=== PATIENT | male | born 1970 | race Caucasian/White ===

== ENCOUNTER 2018-02-01 19:50 | Emergency (ER) | END 2018-02-02 00:30 | disposition home or self-care (01) ==

== ENCOUNTER 2018-06-14 22:48 | Observation (INO) | payer MEDICAID ==
[~2018-06-14] VITALS: Ht 175.3 cm; Wt 157.0 kg
[~2018-06-14 22:48] MED LIST: CEPH-443 PO; HYDR-4011 PO; IBUP800T48 PO; SULF1TAB31 PO
[2018-06-15] VITALS (12 sets, daily range): BP systolic 123–169; BP diastolic 61–83; PULSE 70–81; RESP 20
[2018-06-15] MEDS ORDERED: hydrALAzine 20 MG INJ IV ONE (01:00)
[2018-06-15] MEDS ORDERED: HYDROCODONE/APAP (10/325) TAB PO ONE (03:00)
--- NOTE | 2018-06-15 03:32 | ERD ---
ER Documentation Chief Complaint Chief Complaint CP, PALPITATIONS X'S 1 WEEK HPI This is a 47-year-old male complains of chest pain and palpitations for the past week. Pain is mild to moderate intensity no exacerbating alleviating factors. No radiations. No associated shortness of breath. Does complain of palpitations. No other current problems. Patient does have documented history of high blood pressure, however has been noncompliant with medications for over one year ROS All systems reviewed and are negative except as per history of present illness. Medications Home Meds Discontinued Scripts Ibuprofen* (Motrin*) 800 Mg Tab, 800 MG PO Q6H PRN for PAIN AND OR ELEVATED TEMP, #30 TAB Prov:PASILABAN,KLAR F 02/02/18 Hydrocodone/Acetaminophen ([place] 5-325 Tablet) 1 Each Tablet, 1 TAB PO Q6H PRN for PAIN, #7 TAB Prov:PASILABAN,KLAR F 02/02/18 Sulfamethoxazole/Trimethoprim* (Bactrim Ds* Tablet) 1 Each Tablet, 1 TAB PO BID, #14 TAB Prov:PASILABAN,KLAR F 02/02/18 Cephalexin* (Keflex*) 500 Mg Capsule, 500 MG PO QID for 5 Days, CAP Prov:PASILABAN,KLAR F 02/02/18 Allergies Allergies: Coded Allergies: No Known Allergy (Unverified , 06/15/18) PMhx/Soc History of Surgery: No Anesthesia Reaction: No Hx Neurological Disorder: No Hx Respiratory Disorders: No Hx Cardiac Disorders: Yes (htn) Hx Psychiatric Problems: No Hx Miscellaneous Medical Probl: Yes (diabetes) Hx Alcohol Use: No Hx Substance Use: No Hx Tobacco Use: No Smoking Status: Never smoker Physical Exam Vitals Vital Signs Date Temp Pulse Resp B/P (MAP) Pulse Ox O2 O2 Flow FiO2 Time Delivery Rate 06/15/18 97.6 84 24 154/83 95 Room Air 02:00 (106) 06/15/18 80 16 178/73 97 Room Air 00:21 (108) 06/14/18 98.5 86 18 261/121 97 23:11 (167) Physical Exam Const: No acute distress Head: Atraumatic Eyes: Normal Conjunctiva ENT: Normal External Ears, Nose and Mouth. Neck: Full range of motion. No meningismus. Resp: Clear to auscultation bilaterally Cardio: Regular rate and rhythm, no murmurs Abd: Soft, non tender, non distended. Normal bowel sounds Skin: No petechiae or rashes Back: No midline or flank tenderness Ext: No cyanosis, or edema Neur: Awake and alert Psych: Normal Mood and Affect Result Diagram: 06/15/185 06/15/1834 Results 24 hrs Laboratory Tests Test 06/15/18 00:35 White Blood Count 7.6 10^3/ul Red Blood Count 5.09 10^6/ul Hemoglobin 14.1 g/dl Hematocrit 42.1 % Mean Corpuscular Volume 82.7 fl Mean Corpuscular Hemoglobin 27.7 pg Mean Corpuscular Hemoglobin Concent 33.5 g/dl Red Cell Distribution Width 12.4 % Platelet Count 191 10^3/UL Mean Platelet Volume 10.1 fl Immature Granulocytes % 0.300 % Neutrophils % 42.5 % Lymphocytes % 44.6 % Monocytes % 9.4 % Eosinophils % 2.5 % Basophils % 0.7 % Nucleated Red Blood Cells % 0.0 /100WBC Immature Granulocytes # 0.020 10^3/ul Neutrophils # 3.2 10^3/ul Lymphocytes # 3.4 10^3/ul Monocytes # 0.7 10^3/ul Eosinophils # 0.2 10^3/ul Basophils # 0.1 10^3/ul Nucleated Red Blood Cells # 0.0 10^3/ul Sodium Level 138 mmol/L Potassium Level 4.3 mmol/L Chloride Level 100 mmol/L Carbon Dioxide Level 29 mmol/L Anion Gap 9 Blood Urea Nitrogen 24 mg/dl Creatinine 0.61 mg/dl Est Glomerular Filtrat Rate mL/min > 60 mL/min Glucose Level 305 mg/dl Calcium Level 9.2 mg/dl Total Bilirubin 0.2 mg/dl Direct Bilirubin 0.00 mg/dl Indirect Bilirubin 0.2 mg/dl Aspartate Amino Transf (AST/SGOT) 29 IU/L Alanine Aminotransferase (ALT/SGPT) 38 IU/L Alkaline Phosphatase 123 IU/L Troponin I < 0.012 ng/ml B-Type Natriuretic Peptide 39 PG/ML Total Protein 7.2 g/dl Albumin 3.6 g/dl Globulin 3.60 g/dl Albumin/Globulin Ratio 1.00 Current Medications Medications Dose Sig/Dilma Start Time Status Last (Trade) Ordered Route PRN Stop Time Admin Dose Reason Admin Hydralazine 20 mg ONCE ONCE 06/15/18 DC 06/15/18 HCl IV 01:00 00:40 (Apresoline) 06/15/18 01:01 1 tab ONCE ONCE 06/15/18 DC 06/15/18 Acetaminophen PO 03:00 03:06 / 06/15/18 03:01 Hydrocodone Bitart ([place] (10/325)) Procedures/MDM EKG: Rate/Rhythm: [Normal Sinus Rhythm] QRS, ST, T-waves: [No changes consistent w/ acute ischemia] Impression: [No evidence of ischemia or arrhythmia] Chest X-ray 1V Interpreted by me: Soft Tissue: No acute abnormalities Bones: No acute abnormalities Mediastinum/Cardiac Silhouette/Lungs: [No acute abnormalities] Medical decision making: Patient's symptoms are concerning for cardiac cause will require inpatient workup and continuous monitoring. Further w/u for ischemia, arrhythmia, PE or dissection will be deferred to the inpatient team. Accepting Care Team: Current data and ongoing care discussed. Time: 3:27 AM Primary Provider: Hospitalist Consulting: Deferred to inpatient team Outstanding Data: none Departure Diagnosis: Primary Impression: Chest pain Chest pain type: unspecified Qualified Codes: R07.9 - Chest pain, unspecified Condition: Serious HARSH CHERRY Jun 15, 2018 03:32
[2018-06-15] MEDS ORDERED: NITROGLYCERIN (SL) 0.4 MG TAB SL PRN (04:30)
[2018-06-15] MEDS ORDERED: HYDROCODONE/APAP (5/325) TAB PO PRN ×2 (04:30→17:34)
[2018-06-15] MEDS ORDERED: NACL 0.9% 3 ML SYG IV SCH (04:30)
[2018-06-15] MEDS ORDERED: ALBUTEROL/IPRATROPIUM (NEB) 3 ML AMP HHN PRN (04:30)
[2018-06-15] MEDS ORDERED: ONDANSETRON 4 MG INJ IV PRN (04:30)
[2018-06-15] MEDS ORDERED: GLUCOSE GEL 15 GRAM TUBE PO PRN ×2 (05:00)
[2018-06-15] MEDS ORDERED: GLUCOSE GEL 15 GRAM TUBE BUCCAL PRN (05:00)
[2018-06-15] MEDS ORDERED: GLUCAGON 1 MG INJ IM PRN (05:00)
[2018-06-15] MEDS ORDERED: DEXTROSE 50% 50 ML SYRINGE IV PRN ×2 (05:00)
[2018-06-15] MEDS ORDERED: INSULIN GLARGINE [LANTus] (100 UNITS/ML) SYG SC SCH ×2 (08:00→20:00)
[2018-06-15] MEDS: INSULIN ASPART [NOVOLOG] 3 ML PEN SC SCH ×7 (08:18→20:24)
[2018-06-15] MEDS ORDERED: METOPROLOL 25 MG TAB PO SCH (09:00)
[2018-06-15] MEDS ORDERED: ENOXAPARIN 40 MG/0.4 ML SYG SC SCH (09:00)
[2018-06-15] MEDS: ASPIRIN 81 MG TAB PO SCH (09:03)
--- NOTE | 2018-06-15 09:34 | HP ---
Date/Time of Note Date/Time of Note DATE: 06/15/18 TIME: 09:30 Assessment/Plan VTE Prophylaxis Pharmacological prophylaxis: heparin Lines/Catheters IV Catheter Type (from Nrsg): Saline Lock Assessment/Plan Assessment/Plan 1. Chest pain/palpitation: Rule out ACS -Admit to telemetry unit -Trend troponin -Check TSH and a thyroid profile -2D echo and cardiology consult -Manage hypertension 2. Hypertensive emergency: Patient presents with a blood pressure of 261/121 -He has not been taking his medication because of insurance reason -Adjust BP meds as needed 3. Diabetes with hyperglycemia. Patient has been taking medication again for insurance reason -Check A1c -Insulin while in-house 4. Morbid obesity: Weight reduction advised Result Diagram: 06/15/18 0035 06/15/18 0035 Results 24hrs Laboratory Tests Test 06/15/18 00:35 06/15/18 06:46 06/15/18 08:15 White Blood Count 7.6 Red Blood Count 5.09 Hemoglobin 14.1 Hematocrit 42.1 Mean Corpuscular Volume 82.7 Mean Corpuscular Hemoglobin 27.7 L Mean Corpuscular Hemoglobin Concent 33.5 Red Cell Distribution Width 12.4 Platelet Count 191 Mean Platelet Volume 10.1 Immature Granulocytes % 0.300 Neutrophils % 42.5 Lymphocytes % 44.6 Monocytes % 9.4 Eosinophils % 2.5 Basophils % 0.7 Nucleated Red Blood Cells % 0.0 Immature Granulocytes # 0.020 Neutrophils # 3.2 Lymphocytes # 3.4 H Monocytes # 0.7 Eosinophils # 0.2 Basophils # 0.1 Nucleated Red Blood Cells # 0.0 Sodium Level 138 Potassium Level 4.3 Chloride Level 100 Carbon Dioxide Level 29 Anion Gap 9 Blood Urea Nitrogen 24 H Creatinine 0.61 Est Glomerular Filtrat Rate mL/min > 60 Glucose Level 305 H Calcium Level 9.2 Total Bilirubin 0.2 Direct Bilirubin 0.00 Indirect Bilirubin 0.2 Aspartate Amino Transf (AST/SGOT) 29 Alanine Aminotransferase (ALT/SGPT) 38 Alkaline Phosphatase 123 H Troponin I < 0.012 < 0.012 B-Type Natriuretic Peptide 39 Total Protein 7.2 Albumin 3.6 Globulin 3.60 H Albumin/Globulin Ratio 1.00 Creatine Kinase 89 Creatine Kinase Index 1.0 Creatinine Kinase MB (Mass) 0.92 Bedside Glucose 276 H HPI/ROS Admit Date/Time Admit Date/Time Hx of Present Illness This is a 47-year-old morbidly obese male with a history of hypertension, diabetes who presents the ER complaining of palpitation, chest pain and headache. He said palpitations started about a week ago followed by no occasional substernal chest pain and diffuse headache. Chest pain is nonradiating, described as tightness and sharp. Patient is more bothered by the palpitations. Patient said he has not been taking his diabetes and blood pressure medication because of insurance reason. When he presented to ER, blood pressure was 161/121. First troponin and EKG negative. Glucose 300 without any sign of DKA. Chest x-ray shows moderate cardiomegaly and mild pulmonary venous congestion. PMH/Family/Social Past Medical History Medications Current Medications IV Flush (NS 3 ml) 3 ml PER PROTOCOL IV ; Start 06/15/18 at 04:30 Ondansetron HCl (Zofran Inj) 4 mg Q6H PRN IV NAUSEA AND/OR VOMITING; Start 06/15/18 at 04:30 Aspirin (Aspirin) 81 mg DAILY PO Last administered on 06/15/18at 09:03; Admin Dose 81 MG; Start 06/15/18 at 09:00 Nitroglycerin (Nitroglycerin (Sl Tab) 0.4 Mg) 1 tab Q5M PRN SL CHEST PAIN; Start 06/15/18 at 04:30 Acetaminophen (Tylenol Tab) 650 mg Q6H PRN PO PAIN LEVEL 1-3 OR FEVER; Start 06/15/18 at 04:30 Acetaminophen/ Hydrocodone Bitart ([place] (5/325)) 1 tab Q6H PRN PO PAIN LEVEL 4-6; Start 06/15/18 at 04:30 Enoxaparin Sodium (Lovenox) 40 mg DAILY SC Last administered on 06/15/18at 09:05; Admin Dose 40 MG; Start 06/15/18 at 09:00 Albuterol/ Ipratropium (Duoneb) 3 ml Q2H RESP THERAPY PRN HHN SHORTNESS OF BREATH; Start 06/15/18 at 04:30 Diagnostic Test (Pha) (Accu-Chek) 1 ea 02 XX ; Start 06/16/18 at 02:00 Insulin Glargine (Lantus) 15 units DAILY@0800 SC Last administered on 06/15/18at 08:17; Admin Dose 15 UNITS; Start 06/15/18 at 08:00 Insulin Aspart (Novolog Insulin Pen) 5 unit WITH MEALS SC Last administered on 06/15/18at 08:18; Admin Dose 5 UNIT; Start 06/15/18 at 08:00 Insulin Aspart (Novolog Insulin Pen) NOVOLOG *MODERATE* ALGORITHM WITH MEALS BEDTIME SC Last administered on 06/15/18at 08:19; Admin Dose 8 UNIT; Start 06/15/18 at 08:00 Metoprolol Tartrate (Lopressor) 25 mg Q12 PO Last administered on 06/15/18at 09:04; Admin Dose 25 MG; Start 06/15/18 at 09:00 Miscellaneous Information 1 ea NOTE XX ; Start 06/15/18 at 05:00 Glucose (Glutose) 15 gm Q15M PRN PO DECREASED GLUCOSE; Start 06/15/18 at 05:00 Glucose (Glutose) 22.5 gm Q15M PRN PO DECREASED GLUCOSE; Start 06/15/18 at 05:00 Dextrose (D50w Syringe) 25 ml Q15M PRN IV DECREASED GLUCOSE; Start 06/15/18 at 05:00 Dextrose (D50w Syringe) 50 ml Q15M PRN IV DECREASED GLUCOSE; Start 06/15/18 at 05:00 Glucagon (Glucagen) 1 mg Q15M PRN IM DECREASED GLUCOSE; Start 06/15/18 at 05:00 Glucose (Glutose) 15 gm Q15M PRN BUCCAL DECREASED GLUCOSE; Start 06/15/18 at 05:00 Coded Allergies: No Known Allergy (Unverified , 06/15/18) Family History Significant Family History: no pertinent family hx Social History Alcohol Use: none Smoking Status: Never smoker Drug Use: none Exam/Review of Systems Vital Signs Vitals Vital Signs Date Temp Pulse Resp B/P (MAP) Pulse Ox O2 O2 Flow FiO2 Time Delivery Rate 06/15/18 79 18 161/79 98 Nasal 2.0 08:30 (106) Cannula 06/15/18 98.0 06:30 Exam Exam Constitutional: alert, oriented, well developed, other Head: normocephalic, atraumatic Respiratory: normal air movement Cardiovascular: regular rate and rhythm Gastrointestinal: soft Extremities: normal pulses PMH: see HPI PSH: see HPI . HARSH CEVALLOS MD Jun 15, 2018 09:34
[2018-06-15] MEDS: ACETAMINOPHEN 325 MG TAB PO PRN ×2 (10:38→20:31)
[2018-06-15] MEDS ORDERED: hydrALAzine 20 MG INJ IV PRN (14:30)
--- NOTE | 2018-06-15 15:34 | RADRPT ---
Echocardiogram Report Patient Name: MARAL SKY Gender: Male Date: 1970 Study Date: 15-Jun-2018 Soil Tester: Kelsi Christian [facility] Location: [id number] Ref. Physician: HARSH CEVALLOS Quality: Technically Difficult Study Procedures: Transthoracic echocardiogram with complete 2D, M-Mode, and doppler examination. Indications: Chest Pain. Palpitations. 2D/M Mode Doppler Measurement Value Normal Ranges Measurement Value Normal Ranges LVIDd 2D 5.2 3.5 - 5.6 cm AV Peak Yogi 1.6 m/sec LVIDs 2D 3.5 2.1 - 4.1 cm AV Peak PG 10.0 mmHg FS 2D 33.4 % LVOT Peak Yogi 1.0 m/sec LVPWd 2D 1.4 0.6 - 1.1 cm LVOT Peak PG 4.0 mmHg IVSd 2D 1.2 0.6 - 1.1 cm MV E Peak Yogi 0.8 m/sec IVS/LVPW 2D 0.9 MV A Peak Yogi 0.7 m/sec AoR Diam 2D 2.7 2.0 - 3.7 cm MV E/A 1.2 LA/Ao 2D 1 0 - 1 MV Decel Time 187 msec EDV 2D 139.0 cm3 MV E/A 1.2 ESV 2D 41.1 cm3 TR Peak Yogi 2.5 m/sec LA Dimen 2D 3.8 2.3 - 4.0 cm TR Peak PG 26.0 mmHg RVSP 29.0 mmHg RA Pressure 3.0 Findings Left Ventricle: Normal left ventricular systolic function. Normal left ventricular cavity size. Moderate concentric left ventricular hypertrophy. Ejection fraction is visually estimated at 5560 %. Tissue Doppler/Mitral Doppler indices are within normal limits. Right Ventricle: Normal right ventricular size. Normal right ventricular systolic function. Left Atrium: The left atrium is normal in size. Right Atrium: The right atrium is normal in size. Mitral Valve: Normal appearance and function of the mitral valve with trace physiologic regurgitation. Aortic Valve: Normal appearance of the aortic valve. No significant aortic stenosis or insufficiency. Tricuspid Valve: Normal appearance of the tricuspid valve. Estimated peak PA systolic pressure 29 mmHg. There is trace tricuspid regurgitation. Pulmonic Valve: Normal pulmonic valve appearance. Pericardium: Normal pericardium with no significant pericardial effusion. Aorta: Normal aortic root. IVC: Normal size and normal respiratory collapse consistent with normal right atrial pressure. Conclusions 1.Normal left ventricular systolic function. Normal left ventricular cavity size. Moderate concentric left ventricular hypertrophy. Ejection fraction is visually estimated at 55-60 %. Tissue Doppler/Mitral Doppler indices are within normal limits. 2.Normal appearance and function of the mitral valve with trace physiologic regurgitation. 3.Normal appearance of the tricuspid valve. Estimated peak PA systolic pressure 29 mmHg. There is trace tricuspid regurgitation. Electronically Signed By: Song Kendall 15-Jun-2018 15:33:23 -0800 Patient Name: MARAL SKY Study Date: 15-Jun-2018 [id number]
--- NOTE | 2018-06-15 16:25 | PN ---
Date/Time of Note Date/Time of Note DATE: 06/15/18 TIME: 16:20 Assessment/Plan VTE Prophylaxis SCD applied (from Nsg): No SCD contraindicated: other Pharmacological prophylaxis: heparin Lines/Catheters IV Catheter Type (from Nrsg): Peripheral IV Assessment/Plan Hospital Course S: Patient stating he has some headache symptoms. O: VS -see below Physical exam: General: No acute distress Head: Atraumatic Eyes: Normal Conjunctiva ENT: Normal External Ears, Nose and Mouth. Neck: Supple Resp: Clear to auscultation bilaterally Cardio: Regular rate and rhythm, no murmurs Abd: Soft, non tender, non distended. Normal bowel sounds Ext: No cyanosis, or edema Neur: No focal deficits Assessment/Plan: 47-year-old male who presents with: 1. Chest pain/palpitation: Given his obesity and history of diabetes and hypertension, want to rule out ACS. -Continue to trend troponin -Follow-up TSH and thyroid profile -Follow-up final results of 2D echo -Manage hypertension 2. Hypertensive emergency: Patient presented with a blood pressure of 261/121. Blood pressure is improved now to the systolic 160 range-He has not been taking his medication because of insurance reason -Started on beta-hyacinth this admission, will change this to ELROY inhibitor given his diabetes, adjust BP meds as needed 3. Diabetes with hyperglycemia. Patient has not been taking medication for diabetes again for insurance reason. Sugars presently still in the high 200 range -Follow-up A1c -Add aspart with meals, Lantus, and sliding scale insulin while in-house 4. Morbid obesity: Weight reduction advised Result Diagram: 06/15/18 0035 06/15/18 0035 Results 24hrs Laboratory Tests Test 06/15/18 00:35 06/15/18 06:46 06/15/18 08:15 06/15/18 11:55 White Blood Count 7.6 Red Blood Count 5.09 Hemoglobin 14.1 Hematocrit 42.1 Mean Corpuscular 82.7 Volume Mean Corpuscular 27.7 L Hemoglobin Mean Corpuscular 33.5 Hemoglobin Concent Red Cell 12.4 Distribution Width Platelet Count 191 Mean Platelet Volume 10.1 Immature 0.300 Granulocytes % Neutrophils % 42.5 Lymphocytes % 44.6 Monocytes % 9.4 Eosinophils % 2.5 Basophils % 0.7 Nucleated Red Blood 0.0 Cells % Immature 0.020 Granulocytes # Neutrophils # 3.2 Lymphocytes # 3.4 H Monocytes # 0.7 Eosinophils # 0.2 Basophils # 0.1 Nucleated Red Blood 0.0 Cells # Sodium Level 138 Potassium Level 4.3 Chloride Level 100 Carbon Dioxide Level 29 Anion Gap 9 Blood Urea Nitrogen 24 H Creatinine 0.61 Est Glomerular > 60 Filtrat Rate mL/min Glucose Level 305 H Calcium Level 9.2 Total Bilirubin 0.2 Direct Bilirubin 0.00 Indirect Bilirubin 0.2 Aspartate Amino 29 Transf (AST/SGOT) Alanine 38 Aminotransferase (AL T/SGPT) Alkaline Phosphatase 123 H Troponin I < 0.012 < 0.012 B-Type Natriuretic 39 Peptide Total Protein 7.2 Albumin 3.6 Globulin 3.60 H Albumin/Globulin 1.00 Ratio Creatine Kinase 89 Creatine Kinase 1.0 Index Creatinine Kinase MB 0.92 (Mass) Bedside Glucose 276 H 303 H Test 06/15/18 13:01 Creatine Kinase 83 Creatine Kinase 1.0 Index Creatinine Kinase MB 0.83 (Mass) Troponin I < 0.012 Exam/Review of Systems Vital Signs Vitals Vital Signs Date Temp Pulse Resp B/P (MAP) Pulse Ox O2 O2 Flow FiO2 Time Delivery Rate 06/15/18 97.5 76 20 161/79 98 15:24 (106) 06/15/18 2.0 10:49 06/15/18 Nasal 09:35 Cannula Medications Medications Current Medications IV Flush (NS 3 ml) 3 ml PER PROTOCOL IV ; Start 06/15/18 at 04:30 Ondansetron HCl (Zofran Inj) 4 mg Q6H PRN IV NAUSEA AND/OR VOMITING; Start 06/15/18 at 04:30 Aspirin (Aspirin) 81 mg DAILY PO Last administered on 06/15/18at 09:03; Admin Dose 81 MG; Start 06/15/18 at 09:00 Nitroglycerin (Nitroglycerin (Sl Tab) 0.4 Mg) 1 tab Q5M PRN SL CHEST PAIN; Start 06/15/18 at 04:30 Acetaminophen (Tylenol Tab) 650 mg Q6H PRN PO PAIN LEVEL 1-3 OR FEVER Last administered on 06/15/18at 10:38; Admin Dose 650 MG; Start 06/15/18 at 04:30 Acetaminophen/ Hydrocodone Bitart ([place] (5/325)) 1 tab Q6H PRN PO PAIN LEVEL 4-6 Last administered on 06/15/18at 13:53; Admin Dose 1 TAB; Start 06/15/18 at 04:30 Enoxaparin Sodium (Lovenox) 40 mg DAILY SC Last administered on 06/15/18at 09:05; Admin Dose 40 MG; Start 06/15/18 at 09:00 Albuterol/ Ipratropium (Duoneb) 3 ml Q2H RESP THERAPY PRN HHN SHORTNESS OF BREATH; Start 06/15/18 at 04:30 Diagnostic Test (Pha) (Accu-Chek) 1 ea 02 XX ; Start 06/16/18 at 02:00 Insulin Aspart (Novolog Insulin Pen) NOVOLOG *MODERATE* ALGORITHM WITH MEALS BEDTIME SC Last administered on 06/15/18at 12:41; Admin Dose 10 UNIT; Start 06/15/18 at 08:00 Miscellaneous Information 1 ea NOTE XX ; Start 06/15/18 at 05:00 Glucose (Glutose) 15 gm Q15M PRN PO DECREASED GLUCOSE; Start 06/15/18 at 05:00 Glucose (Glutose) 22.5 gm Q15M PRN PO DECREASED GLUCOSE; Start 06/15/18 at 05:0 0 Dextrose (D50w Syringe) 25 ml Q15M PRN IV DECREASED GLUCOSE; Start 06/15/18 at 05:00 Dextrose (D50w Syringe) 50 ml Q15M PRN IV DECREASED GLUCOSE; Start 06/15/18 at 05:00 Glucagon (Glucagen) 1 mg Q15M PRN IM DECREASED GLUCOSE; Start 06/15/18 at 05:00 Glucose (Glutose) 15 gm Q15M PRN BUCCAL DECREASED GLUCOSE; Start 06/15/18 at 05:00 Influenza Virus Vaccine Quadrival (Fluzone) 0.5 ml ONCE ONCE IM* ; Start 06/16/18 at 12:30; Stop 06/16/18 at 12:31 Hydralazine HCl (Apresoline) 10 mg Q6H PRN IV ELEVATED BLOOD PRESSURE Last administered on 06/15/18at 15:43; Admin Dose 10 MG; Start 06/15/18 at 14:30 Miscellaneous Information (* Miscellaneous Pharmacy Order) Discontinue current oral sulfonylur... ONCE ONCE XX ; Start 06/15/18 at 16:00; Stop 06/15/18 at 16:01; Status UNV Diagnostic Test (Pha) (Accu-Chek) XX ; Start 06/16/18 at 02:00; Status UNV Insulin Glargine (Lantus) 31 units DAILY@2000 SC ; Start 06/15/18 at 20:00; Status UNV Insulin Aspart (Novolog Insulin Pen) 11 unit WITH MEALS SC ; Start 06/15/18 at 18:00; Status UNV Miscellaneous Information (* Miscellaneous Pharmacy Order) HYPOGLYCEMIA PROTOCOL w... ONCE ONCE XX ; Start 06/15/18 at 16:00; Stop 06/15/18 at 16:01; Status UNV Miscellaneous Information (* Miscellaneous Pharmacy Order) Discontinue all previ... ONCE ONCE XX ; Start 06/15/18 at 16:00; Stop 06/15/18 at 16:01; Status UNV Lisinopril (Zestril) 20 mg ONCE ONCE PO ; Start 06/15/18 at 16:30; Stop 06/15/18 at 16:31; Status UNV Lisinopril (Zestril) 20 mg DAILY PO ; Start 06/16/18 at 09:00; Status UNV ERIKA COLIN Jun 15, 2018 16:25
[2018-06-15] MEDS ORDERED: LISINOPRIL 20 MG TAB PO ONE (16:30)
[2018-06-15] MEDS: HEPARIN 5,000 UNIT/1 ML VIAL SC SCH (20:24)
[2018-06-16] VITALS (9 sets, daily range): BP systolic 135–185; BP diastolic 73–88; PULSE 73–87; RESP 18–20
[2018-06-16] MEDS ORDERED: ACCU-CHEK XX SCH ×2 (02:00)
[2018-06-16] MEDS: INSULIN ASPART [NOVOLOG] 3 ML PEN SC SCH ×4 (08:12→11:35)
[2018-06-16] MEDS ORDERED: LISINOPRIL 20 MG TAB PO SCH (09:00)
[2018-06-16] MEDS: ACETAMINOPHEN 325 MG TAB PO PRN ×2 (09:47→16:13)
[2018-06-16] MEDS: ASPIRIN 81 MG TAB PO SCH (09:47)
[2018-06-16] MEDS: HEPARIN 5,000 UNIT/1 ML VIAL SC SCH (10:47)
--- NOTE | 2018-06-16 10:57 | PDOCDIS ---
Discharge Instructions CONDITION [id number] Patient Condition: [id number] Stable HOME CARE INSTRUCTIONS: [id number] Special Diet: [id number] carb controlled diet ACTIVITY: [id number] Activity Restrictions: [id number] Slowly Increase Activity Rest between Activity Avoid heavy lifting FOLLOW UP/APPOINTMENTS Follow-up Plan Please take your medications as prescribed. Please see your doctor in the clinic in the next 1 week. ERIKA COLIN. Jun 16, 2018 10:57
[2018-06-16] MEDS ORDERED: METF-480 PO (10:59)
[2018-06-16] MEDS ORDERED: LISI-471 PO (10:59)
--- NOTE | 2018-06-16 11:03 | DS ---
Date/Time of Note Date/Time of Note DATE: 06/16/18 TIME: 10:59 Discharge Summary Admission/Discharge Info Admit Date/Time Jun 15, 2018 at 03:26 Discharge Date/Time Discharge Diagnosis 1. Chest pain/palpitation: ruled out for ACS. 2. Hypertensive emergency: Resolved, patient presented with a blood pressure of 261/121. 3. Diabetes with hyperglycemia. A1c was 10.8. Sugars improved. 4. Morbid obesity: Weight reduction advised Patient Condition: Stable Hx of Present Illness 47-year-old morbidly obese male with a history of hypertension, diabetes who presents the ER complaining of palpitation, chest pain and headache. He said palpitations started about a week ago followed by no occasional substernal chest pain and diffuse headache. Chest pain is nonradiating, described as tightness and sharp. Patient is more bothered by the palpitations. Patient said he has not been taking his diabetes and blood pressure medication because of insurance reason. When he presented to ER, blood pressure was 161/121. First troponin and EKG negative. Glucose 300 without any sign of DKA. Chest x-ray shows moderate cardiomegaly and mild pulmonary venous congestion. Hospital Course So patient was admitted to telemetry floor. He ruled out for acute coronary syndrome as his troponins were negative x3. Echocardiogram was performed results were noted. Patient's chest pain symptoms resolved. He was able to ambulate, tolerated p.o. diet. Regarding his hypertensive emergency/urgency, this improved with appropriate blood pressure medicines. Patient also needed to be seen by the financial counselor given some insurance issues. He was started on appropriate antihypertensive regimen, blood pressure again was stable. He was able to ambulate, tolerated p.o. diet. She will be discharged home today in improved condition. See below for full list of discharge medications. Home Meds Active Scripts Metformin* (Glucophage*) 850 Mg Tablet, 850 MG PO WITH BREAKFAST DINNE, #60 TAB 5 Refills Prov:ERIKA COLIN S. 06/16/18 Lisinopril* (Lisinopril*) 20 Mg Tablet, 20 MG PO DAILY, #30 TAB 3 Refills Prov:RAMADINA MORTENSENERIKA S. 06/16/18 Discontinued Scripts Ibuprofen* (Motrin*) 800 Mg Tab, 800 MG PO Q6H PRN for PAIN AND OR ELEVATED TEMP, #30 TAB Prov:PASILABAN,KLAR F 02/02/18 Hydrocodone/Acetaminophen (Townsend 5-325 Tablet) 1 Each Tablet, 1 TAB PO Q6H PRN for PAIN, #7 TAB Prov:GUILLERMO BYRD 02/02/18 Sulfamethoxazole/Trimethoprim* (Bactrim Ds* Tablet) 1 Each Tablet, 1 TAB PO BID, #14 TAB Prov:GUILLERMO BYRD 02/02/18 Cephalexin* (Keflex*) 500 Mg Capsule, 500 MG PO QID for 5 Days, CAP Prov:GUILLERMO BYRD 02/02/18 Follow-up Plan Please take your medications as prescribed. Please see your doctor in the clinic in the next 1 week. Primary Care Provider Care Physician No Primary Time spent on discharge: > 30 minutes Pending Labs Laboratory Tests Test 06/15/18 11:55 06/15/18 12:58 06/15/18 13:01 06/15/18 17:37 Bedside 303 208 Glucose mg/dL (70-220) mg/dL (70-220) Hemoglobin A1c 10.8 % (0-5.9) Thyroid 1.570 Stimulating MIU/L (0.465-4 Hormone (TSH) .680) Free Thyroxine 1.36 ng/dl (0.64-1. 79) Creatine 83 Kinase IU/L (23-200) Creatine Kinase 1.0 Index Creatinine 0.83 Kinase MB ng/ml (0.0-2.4 (Mass) ) Troponin I < 0.012 ng/ml (0.000-0 .120) Test 06/15/18 20:14 06/16/18 05:23 06/16/18 08:09 Bedside 198 187 Glucose mg/dL (70-220) mg/dL (70-220) White Blood 7.9 Count 10^3/ul (4.8-1 0.8) Red Blood 5.09 Count 10^6/ul (4.70- 6.10) Hemoglobin 14.3 g/dl (14.0-18. 0) Hematocrit 42.7 % (42.0-52.0) Mean 83.9 Corpuscular fl (82.0-101.0 Volume ) Mean 28.1 Corpuscular pg (29.0-33.0) Hemoglobin Mean 33.5 Corpuscular g/dl (32.0-37. Hemoglobin Conc 0) ent Red Cell 12.7 Distribution % (11.5-14.5) Width Platelet Count 200 10^3/UL (140-4 15) Mean Platelet 10.1 Volume fl (7.4-10.4) Immature 0.300 Granulocytes % % (0.001-0.429 ) Neutrophils % 51.5 % (39.0-77.0) Lymphocytes % 38.5 % (15.0-51.0) Monocytes % 7.4 % (0.0-11.0) Eosinophils % 1.9 % (0.0-7.0) Basophils % 0.4 % (0.0-2.0) Nucleated Red 0.0 Blood Cells % /100WBC (0.0-0 .0) Immature 0.020 Granulocytes # 10^3/ul (0.0-0 .031) Neutrophils # 4.1 10^3/ul (1.6-7 .5) Lymphocytes # 3.0 10^3/ul (0.8-2 .9) Monocytes # 0.6 10^3/ul (0.3-0 .9) Eosinophils # 0.2 10^3/ul (0.0-0 .5) Basophils # 0.0 10^3/ul (0.0-0 .1) Nucleated Red 0.0 Blood Cells # 10^3/ul (0.0-0 .0) Sodium Level 135 mmol/L (135-14 4) Potassium 4.2 Level mmol/L (3.5-5. 1) Chloride Level 100 mmol/L (97-110 ) Carbon Dioxide 29 Level mmol/L (21-31) Anion Gap 6 (5-13) Blood Urea 22 Nitrogen mg/dl (7-20) Creatinine 0.54 mg/dl (0.61-1. 24) Est Glomerular > 60 Filtrat mL/min (>60) Rate mL/min Glucose Level 194 mg/dl (70-220) Calcium Level 9.1 mg/dl (8.4-10. 2) Magnesium 2.0 Level mg/dl (1.7-2.5 ) Total 0.3 Bilirubin mg/dl (0.2-1.3 ) Direct 0.00 Bilirubin mg/dl (0.00-0. 20) Indirect 0.3 Bilirubin mg/dl (0-1.1) Aspartate Amino 32 Transf (AST/SGO IU/L (15-46) T) Alanine 39 Aminotransferas IU/L (13-69) e (ALT/SGPT) Alkaline 96 Phosphatase IU/L (42-121) Total Protein 7.1 g/dl (6.1-8.1) Albumin 3.5 g/dl (3.3-4.9) Globulin 3.60 g/dl (1.3-3.2) Albumin/Globuli 0.97 n Ratio Triglycerides 287 Level mg/dl (0-149) Cholesterol 178 Level mg/dl (100-200 ) LDL 90 mg/dl Cholesterol, Calculated HDL 31 Cholesterol mg/dl (27-67) Cholesterol/HDL 5.7 RATIO Ratio ERIKA COLIN Jun 16, 2018 11:03
== END 2018-06-16 16:00 | disposition home or self-care (01) ==
LOC: E/R 22:48 → 6WM 06-15 03:26
PROVIDERS: ADMIT Internal Medicine; ATTEND Hospitalist
DX: R07.9 Chest pain, unspecified (principal); R00.2 Palpitations; I10 Essential (primary) hypertension; I16.1 Hypertensive emergency; E11.65 Type 2 diabetes mellitus with hyperglycemia; E66.01 Morbid (severe) obesity due to excess calories; Z68.43 Body mass index [BMI] 50.0-59.9, adult; Z23 Encounter for immunization
CPT/HCPCS: 36415; 71045; 80053; 80061; 82550; 82553; 82962; 83036; 83735; 83880; 84439; 84443; 84484; 85025; 90686; 93005; 93306; 96374; J0360; J1644; J1650; J1815; Z7500; Z7502; Z7610; G0378

== ENCOUNTER 2019-01-10 19:35 | Emergency (ER) | payer MEDICAID ==
[~2019-01-10] VITALS: Ht 167.6 cm; Wt 159.8 kg
[~2019-01-10 19:35] MED LIST changes: -HYDR-4011 PO; +LISI-471 PO; +METF-480 PO
[2019-01-10 20:03] VITALS: Ht 167.6 cm; Wt 159.8 kg
[2019-01-10] MEDS ORDERED: CEPHALEXIN 500 MG CAP PO ONE (20:30)
[2019-01-10] MEDS ORDERED: TRIMETHOPRIM/SULFAMETHOX (DS) TAB PO ONE (20:30)
[2019-01-10 20:37] VITALS: BP 183/91; PULSE 82; RESP 20
--- NOTE | 2019-01-10 21:00 | ERD ---
ER Documentation Chief Complaint Chief Complaint C/O LT KUMAR WOUND, REDNESS, SWELLING AND PAINFUL X2 DAYS HPI 48-year-old gentleman who presents to the emergency room with 2 to 3 days of sy mptoms to his left lower extremity. The patient states that he may have been bitten by an insect. He is scratching the area. Over the last several days he is noted an area of erythema warmth and tenderness with scant drainage from the central area. He denies any fevers or chills. Mild pain to the area. Patient also noted to have elevated blood pressure at triage. He denies any headache chest pain or shortness of breath. He states compliance with his blood pressure medications. ROS All systems reviewed and are negative except as per history of present illness. Medications Home Meds Active Scripts Cephalexin* (Keflex*) 500 Mg Capsule, 500 MG PO QID for 7 Days, CAP Prov:SONYA HOFF MD 01/10/19 Sulfamethoxazole/Trimethoprim* (Bactrim Ds* Tablet) 1 Each Tablet, 1 TAB PO BID, #14 TAB Prov:SONYA HOFF MD 01/10/19 Ibuprofen* (Motrin*) 800 Mg Tab, 800 MG PO Q6H PRN for PAIN AND OR ELEVATED TEMP, #30 TAB Prov:SONYA HOFF MD 01/10/19 Metformin* (Glucophage*) 850 Mg Tablet, 850 MG PO WITH BREAKFAST DINNE, #60 TAB 5 Refills Prov:ERIKA COLIN S. 06/16/18 Lisinopril* (Lisinopril*) 20 Mg Tablet, 20 MG PO DAILY, #30 TAB 3 Refills Prov:ERIKA COLIN S. 06/16/18 Allergies Allergies: Coded Allergies: No Known Allergy (Unverified , 06/15/18) PMhx/Soc History of Surgery: No Anesthesia Reaction: No Hx Neurological Disorder: No Hx Respiratory Disorders: No Hx Cardiac Disorders: Yes (HTN ) Hx Psychiatric Problems: No Hx Miscellaneous Medical Probl: No Hx Alcohol Use: Yes Hx Substance Use: Yes Hx Tobacco Use: No Smoking Status: Never smoker FmHx Family History: diabetes Physical Exam Vitals Vital Signs Date Temp Pulse Resp B/P (MAP) Pulse Ox O2 O2 Flow FiO2 Time Delivery Rate 01/10/19 98.0 82 20 183/91 96 Room Air 20:37 (121) 01/10/19 97.7 79 21 259/121 94 20:03 (167) Physical Exam General: Well developed, well nourished, no acute distress Head: Normocephalic, atraumatic. Eyes: Pupils equally reactive, EOM intact ENT: Moist mucous membranes Neck: Supple, no lymphadenopathy Respiratory: Lungs clear bilaterally, no distress Cardiovascular: RRR, no murmurs, rubs, or gallops Abdominal: Soft, non-tender, non-distended, no peritoneal signs : Deferred MSK: The left lower extremity has an area to the mid kumar approximately 3.5 to 4 cm in diameter with a central portion of weeping and irritation without significant drainage fluctuance or induration. No crepitus is noted. No bullae. Neurovascular intact distally. Neurologic: Alert and oriented, moving all extremities, normal speech, no focal weakness, no cerebellar signs Skin: No rash Psych: Normal mood Results 24 hrs Current Medications Medications Dose Sig/Dilma Start Time Status Last (Trade) Ordered Route PRN Stop Time Admin Dose Reason Admin 1 tab ONCE ONCE 01/10/19 DC 01/10/19 Trimethoprim/ PO 20:30 20:37 01/10/19 20:31 Sulfamethoxaz ole (Bactrim (Ds)) Cephalexin 500 mg ONCE ONCE 01/10/19 DC 01/10/19 (Keflex) PO 20:30 20:37 01/10/19 20:31 Procedures/MDM Clinical exam is very consistent with cellulitis of the left lower extremity likely secondary to scratching a localized insect bite with localized inflammatory process. No fever, no systemic signs or symptoms. The patient's clinical exam is not consistent with necrotizing fasciitis or deep space infection. Oral antibiotics would be reasonable. Blood pressure is elevated and trended down without intervention. He has compliance with medications and no signs or symptoms concerning for endorgan dysfunction. First dose of antibiotics provided in the emergency room. Return for wound check in 1 to 2 days. Return precautions discussed with early return for worsening symptoms. Area demarcated with a skin marker the patient does not have an identifiable emergent medical condition that warrants inpatient hospitalization at this time. The patient is deemed safe for discharge with outpatient follow-up. We discussed follow up with the patient's primary care doctor within 24 to 48 hours as needed. We also discussed return to the emergency room for worsening symptoms or worsening condition. Outpatient referral: None required Discharge Medications: Bactrim and Keflex, Motrin Departure Diagnosis: Primary Impression: Left leg cellulitis Additional Impressions: Asymptomatic hypertensive urgency Morbid obesity Condition: Stable Patient Instructions: Cellulitis Referrals: [facility] YOU HAVE RECEIVED A MEDICAL SCREENING EXAM AND THE RESULTS INDICATE THAT YOU DO NOT HAVE A CONDITION THAT REQUIRES URGENT TREATMENT IN THE EMERGENCY DEPARTMENT. FURTHER EVALUATION AND TREATMENT OF YOUR CONDITION CAN WAIT UNTIL YOU ARE SEEN IN YOUR DOCTORS OFFICE WITHIN THE NEXT 1-2 DAYS. IT IS YOUR RESPONSIBILITY TO MAKE AN APPOINTMENT FOR FOLOW-UP CARE. IF YOU HAVE A PRIMARY DOCTOR --you should call your primary doctor and schedule an appointment IF YOU DO NOT HAVE A PRIMARY DOCTOR YOU CAN CALL OUR PHYSICIAN REFERRAL HOTLINE AT IF YOU CAN NOT AFFORD TO SEE A PHYSICIAN YOU CAN CHOSE FROM THE FOLLOWING [facility] [address] [facility]. [facility] [address] [facility] [facility] [address] [facility] [address] [facility] [address] [facility]. [facility] [address] [facility]. [place] YOU HAVE RECEIVED A MEDICAL SCREENING EXAM AND THE RESULTS INDICATE THAT YOU DO NOT HAVE A CONDITION THAT REQUIRES URGENT TREATMENT IN THE EMERGENCY DEPARTMENT. FURTHER EVALUATION AND TREATMENT OF YOUR CONDITION CAN WAIT UNTIL YOU ARE SEEN IN YOUR DOCTORS OFFICE WITHIN THE NEXT 1-2 DAYS. IT IS YOUR RESPONSIBILITY TO MAKE AN APPOINTMENT FOR FOLOW-UP CARE. IF YOU HAVE A PRIMARY DOCTOR --you should call your primary doctor and schedule and appointment IF YOU DO NOT HAVE A PRIMARY DOCTOR YOU CAN CALL OUR PHYSICIAN REFERRAL HOTLINE AT . IF YOU CAN NOT AFFORD TO SEE A PHYSICIAN YOU CAN CHOSE FROM THE FOLLOWING [facility] INSTITUTIONS: [facility] [address] [place] [address] [facility] [address] [place] [address] [facility] [address] [place] [address] Additional Instructions: Return in 1-2 days for wound recheck Return sooner for any worsening symptoms, significantly spreading redness. SONYA HOFF MD Jan 10, 2019 21:00
== END 2019-01-10 20:37 | disposition home or self-care (01) ==
LOC: E/R 19:35
DX: L03.116 Cellulitis of left lower limb (principal); I10 Essential (primary) hypertension; I16.0 Hypertensive urgency; E66.01 Morbid (severe) obesity due to excess calories; Z68.43 Body mass index [BMI] 50.0-59.9, adult; Z79.84 Long term (current) use of oral hypoglycemic drugs
CPT/HCPCS: Z7502; Z7610; 99283

== ENCOUNTER 2019-02-15 21:03 | Emergency (ER) | payer MEDICAID ==
[~2019-02-15] VITALS: Ht 182.9 cm; Wt 163.8 kg
[~2019-02-15 21:03] MED LIST changes: +CLIN300C10 PO; +HYDR-4011 PO; +IBUP-1542 PO; +METF850T13 PO
[2019-02-15 21:40] VITALS: Ht 182.9 cm; Wt 163.8 kg
[2019-02-16 03:35] VITALS: BP 167/84; PULSE 80; RESP 20
== END 2019-02-16 03:45 | disposition home or self-care (01) ==
LOC: E/R 21:03
DX: D64.9 Anemia, unspecified (principal); L03.116 Cellulitis of left lower limb; L03.115 Cellulitis of right lower limb; E11.9 Type 2 diabetes mellitus without complications; I10 Essential (primary) hypertension; E66.9 Obesity, unspecified; Z68.42 Body mass index [BMI] 45.0-49.9, adult; Z79.84 Long term (current) use of oral hypoglycemic drugs
CPT/HCPCS: 36415; 71045; 80048; 81003; 83880; 85025; 85610; 85730; 93005; 93970; Z7502